=== PATIENT | female | born 1965 | race Caucasian/White ===

== ENCOUNTER 2018-01-08 17:11 | Emergency (ER) | END 2018-01-08 18:41 | disposition home or self-care (01) ==

== ENCOUNTER 2018-03-05 09:17 | Day surgery (SDC) | END 2018-03-05 17:20 | disposition home or self-care (01) ==

== ENCOUNTER 2018-10-18 02:14 | Emergency (ER) | END 2018-10-18 04:16 | disposition home or self-care (01) ==